=== PATIENT | female | born 1980 | race American Indian/Alaskan Native ===

== ENCOUNTER 2016-12-25 09:32 | Outpatient (CLI) | payer BC, MEDICAID ==
[2016-12-25] MEDS ORDERED: LEXISCAN IV ONE ×2 (11:00→11:06)
[2016-12-25 13:17] VITALS: BP 172/91
--- NOTE | 2016-12-26 06:31 | Treadmill Report ---
INDICATION: Preoperative cardiac clearance. ORDERING PHYSICIAN: González Barroso M.D. FINDINGS: 1. This is a fair quality myocardial perfusion scan. 2. No scintigraphic evidence of myocardial ischemia noted. 3. The left ventricle is noted to be mildly dilated. The left ventricular ejection fraction is measured at 61%. Normal wall motion and wall thickening is noted on gated imaging. CONCLUSION: Normal perfusion scan. JOB# [id number] NATASHA/BRENDA
== END 2016-12-25 09:33 | disposition home or self-care (01) ==
LOC: CARD 09:32
PROVIDERS: ATTEND Internal Medicine Cardiovascular Disease
DX: Z01.810 Encounter for preprocedural cardiovascular examination (principal); I10 Essential (primary) hypertension
CPT/HCPCS: 78452; 93017; A9502; J2785

== ENCOUNTER 2016-12-29 11:00 | Outpatient (CLI) | payer BC, MEDICAID | END 2016-12-29 11:01 | disposition home or self-care (01) | LOC: SLR 11:00 | PROVIDERS: ATTEND Internal Medicine | DX: G47.30 Sleep apnea, unspecified (principal); I10 Essential (primary) hypertension | CPT/HCPCS: G0399 ==

== ENCOUNTER 2017-04-28 20:20 | Emergency (ER) | payer BC, MEDICAID ==
[2017-04-28 21:26] VITALS: BP 154/91
[2017-04-28 22:09] LABS: Basophils % (Auto) 0.4 % (0.0-1.8); Eosinophils # (Auto) 0.1 K/mm3 (0.0-0.4); Eosinophils % (Auto) 1.4 % (0.0-4.3); Hematocrit 36.5 % (30.3-42.9); Hemoglobin 11.9 gm/dl (10.1-14.3); Lymphocytes # (Auto) 2.7 K/mm3 (1.2-5.4); Lymphocytes % (Auto) 35.1 % (13.4-35.0); Mean Corpuscular HGB Conc 33 % (30-34); Mean Corpuscular Hemoglobin 27 pg (28-32); Mean Corpuscular Volume 84 fl (79-97); Monocytes # (Auto) 0.5 K/mm3 (0.0-0.8); Monocytes % (Auto) 6.3 % (0.0-7.3); Platelet Count 275 K/mm3 (140-440); Red Blood Count 4.35 M/mm3 (3.65-5.03); Red Cell Distribution Width 15.5 % (13.2-15.2)
[2017-04-28 22:34] LABS: BUN/Creatinine Ratio 23; Blood Urea Nitrogen 9 mg/dL (7-17); Calcium 9.3 mg/dL (8.4-10.2); Hemolysis Index 7
== END 2017-04-29 00:03 | disposition left against medical advice (07) ==
LOC: ED 20:20
DX: J00 Acute nasopharyngitis [common cold] (principal); Z53.21 Procedure and treatment not carried out due to patient leaving prior to being seen by health care provider
CPT/HCPCS: 36415; 80048; 84703; 85025; 93005; 93010

== ENCOUNTER 2018-10-04 11:00 | Outpatient (CLI) | payer BC, MEDICAID | END 2018-10-04 11:01 | disposition home or self-care (01) | LOC: SLR 11:00 | PROVIDERS: ATTEND Otolaryngology | DX: G47.33 Obstructive sleep apnea (adult) (pediatric) (principal); R40.0 Somnolence; R06.83 Snoring; E66.9 Obesity, unspecified; I10 Essential (primary) hypertension; J45.909 Unspecified asthma, uncomplicated | CPT/HCPCS: 95811 ==